=== PATIENT | male | born 1960 | race Caucasian/White ===

== ENCOUNTER 2018-01-09 09:09 | Day surgery (SDC) | payer BC ==
[~2018-01-09 09:09] MED LIST: Lactated Ringers 1,000 ML IV SCH; Sodium Chloride 0.9% 10 ML Syringe FLUSH PRN; Sodium Chloride 0.9% 2.5 ML Syringe FLUSH PRN
--- NOTE | 2018-01-09 09:33 | PCM.PREANE ---
Preanesthetic Assessment - Anesthesia/Transfusion/Family Hx Anesthesia History: Prior Anesthesia Without Reaction Family History of Anesthesia Reaction: No Transfusion History: No Prior Transfusion(s) Intubation History: Unknown - Review of Systems General: No Symptoms Pulmonary: No Symptoms Cardiovascular: No Symptoms Gastrointestinal: No Symptoms, Other (screening colonoscopy) Neurological: No Symptoms Other: Reports: None - Physical Assessment Height: 1.83 m Weight: 101.151 kg ASA Class: 2 Mental Status: Alert & Oriented x3 Airway Class: Mallampati = 2 Dentition: Reports: Normal Dentition Thyro-Mental Finger Breadths: 2 Mouth Opening Finger Breadths: 3 ROM/Head Extension: Full Lungs: Clear to Auscultation, Normal Respiratory Effort Cardiovascular: Regular Rate, Regular Rhythm - Allergies Allergies/Adverse Reactions: Allergies Allergy/AdvReac Type Severity Reaction Status Date / Time No Known Allergies Allergy Verified 01/06/18 11:02 - Blood Blood Available: No - Anesthesia Plan Pre-Op Medication Ordered: None - Acknowledgements Anesthesia Type Planned: MAC Pt an Appropriate Candidate for the Planned Anesthesia: Yes Alternatives and Risks of Anesthesia Discussed w Pt/Guardian: Yes Pt/Guardian Understands and Agrees with Anesthesia Plan: Yes PreAnesthesia Questionnaire HEENT History: Reports: Other (See Below) Other HEENT History: wears glasses Cardiovascular History: Reports: None Respiratory History: Reports: None Gastrointestinal History: Reports: None Genitourinary History: Reports: Renal Calculus Neurological History: Reports: Other (See Below) Other Neuro History: Restless Leg Syndrome Psychiatric History: Reports: None Endocrine/Metabolic History: Reports: None, Obesity/BMI 30+ Dermatologic History: Reports: None - Infectious Disease History Infectious Disease History: Reports: None - Past Surgical History GI Surgical History: Reports: Hernia, Inguinal Male Surgical History: Reports: Lithotripsy (ESWL) (x3), Other (See Below) ( cysto with stent placement) Musculoskeletal Surgical History: Reports: Shoulder Surgery Other Musculoskeletal Surgeries/Procedures:: right RTCR - SUBSTANCE USE Smoking Status *Q: Never Smoker Recreational Drug Use History: No - HOME MEDS Home Medications: Home Meds Aspirin 81 mg PO DAILY 05/04/16 [History] [place]-3 Fatty Acids [Fish Oil] 1,000 mg PO DAILY 05/04/16 [History] Allopurinol [Zyloprim] 100 mg PO DAILY 01/06/18 [History] Cholecalciferol (Vitamin D3) [Vitamin D3] 2,000 unit PO BID 01/06/18 [History] Hydrochlorothiazide 25 mg PO DAILY 01/06/18 [History] Magnesium 250 mg PO DAILY 01/06/18 [History] Multivitamin [Multi-Vitamin Daily] 1 tab PO DAILY 01/06/18 [History] Potassium Citrate/Citric Acid [Cytra-K Crystals] 1 pkt PO DAILY 01/06/18 [ History] Tamsulosin HCl 0.4 mg PO DAILY 01/06/18 [History] rOPINIRole HCl [Requip] 1 mg PO BEDTIME 01/06/18 [History] - CURRENT (IN HOUSE) MEDS Current Meds: Current Medications Lactated Ringer's (Ringers, Lactated) 1,000 mls @ 125 mls/hr IV ASDIRECTED JAKE Sodium Chloride (Saline Flush) 10 ml FLUSH ASDIRECTED PRN PRN Reason: Keep Vein Open Sodium Chloride (Saline Flush) 2.5 ml FLUSH ASDIRECTED PRN PRN Reason: Keep Vein Open Sodium Chloride (Saline Flush) 10 ml FLUSH ASDIRECTED PRN PRN Reason: Keep Vein Open Sodium Chloride (Saline Flush) 2.5 ml FLUSH ASDIRECTED PRN PRN Reason: Keep Vein Open
[2018-01-09] MEDS ORDERED: Lidocaine 2% 5 ML SDV ONE (10:13)
[2018-01-09] MEDS ORDERED: Propofol 200 MG/20 ML SDV ONE (10:13)
[2018-01-09] MEDS ORDERED: fentaNYL 100 MCG/2 ML SDV ONE (10:14)
[2018-01-09] MEDS ORDERED: Midazolam 1 MG/ML 2 ML SDV ONE (10:14)
--- NOTE | 2018-01-09 11:47 | PCM.OPNOTE ---
- General Post-Op/Procedure Note Date of Surgery/Procedure: 01/09/18 Operative Procedure(s): Colonoscopy Findings: Sigmoid colon polyp Pre Op Diagnosis: Screening colonoscopy Post-Op Diagnosis: sigmoid colon polyp Anesthesia Technique: MAC Primary Surgeon: Jessica Collins Condition: Good Free Text/Narrative:: Intake & Output 01/08/18 01/09/18 01/09/18 22:59 06:59 14:59 Intake Total 950 Balance 950
[2018-01-09 12:24] VITALS: BP 119/61
--- NOTE | 2018-01-09 19:41 | OR ---
SURGEON: STEFANI CLAYTON MD DATE OF PROCEDURE: 01/09/2018 PREOPERATIVE DIAGNOSIS: Screening colonoscopy. POSTOPERATIVE DIAGNOSIS: Sigmoid colon polyp. PROCEDURE PERFORMED: Screening colonoscopy. ANESTHESIA: MAC. INSTRUMENT USED: Olympus colonoscope. EXTENT OF EXAM: To the cecum. PREPARATION: Good. LIMITATIONS: None. INDICATION FOR EXAMINATION: The patient is a 57-year-old male, who presents for screening colonoscopy. We discussed the procedure, expected perioperative course, and risks including bleeding, infection, or damage to surrounding structures including perforation. The patient verbalized understanding and wishes to proceed. PROCEDURE IN DETAIL: The patient was brought into the endoscopy suite and placed in the OR cart in the left lateral decubitus position. A time-out was completed verifying the patient's name, age, date of , allergies, and procedure to be performed. Monitored anesthesia care was induced and continuous oxygen was provided via nasal cannula throughout the procedure. After adequate sedation was achieved, a digital rectal exam was performed. This exam was within normal limits. A well lubricated colonoscope was inserted into the rectum and advanced under direct visualization to the level of cecum. The cecum was identified by both visual and anatomic landmarks. A photograph was taken of the cecal cap. I was unable to retroflex the scope within the cecum due to looping of the scope more proximally. The scope was then fully withdrawn while examining the color, texture, anatomy, and integrity of the mucosa from the cecum to the anal canal. The patient was found to have one 2 to 3 mm sessile sigmoid colon polyp. This was removed using a cold biopsy forceps. The scope was then brought into the rectum and retroflexed to allow visualization of the anal canal opening. This appeared normal and a photograph was taken. The scope was then straightened out and removed from the patient. The cecum to anus time was 13 minutes. The patient tolerated the procedure well and was taken to PACU in stable condition. ENDOSCOPIC DIAGNOSIS: Sigmoid colon polyp. RECOMMENDATIONS: Follow up in clinic in 2 weeks. CHRIS RESTREPO /[id number]
== END 2018-01-09 11:40 | disposition home or self-care (01) ==
LOC: MW.SDS 09:09
PROVIDERS: ATTEND Surgery
DX: Z12.11 Encounter for screening for malignant neoplasm of colon (principal); D12.5 Benign neoplasm of sigmoid colon; E66.9 Obesity, unspecified; Z68.30 Body mass index [BMI] 30.0-30.9, adult; Z79.899 Other long term (current) drug therapy
CPT/HCPCS: 45380; J2250; J3010; J7120; 00811; 88305; J2704

== ENCOUNTER 2022-12-20 08:20 | Day surgery (SDC) | payer BC ==
[~2022-12-20 08:20] MED LIST changes: +Sodium Chloride 0.9% 20 ML SDV IV PRN
[2022-12-20] MEDS ORDERED: Propofol 200 MG/20 ML SDV ONE (08:33)
[2022-12-20] MEDS ORDERED: fentaNYL 100 MCG/2 ML SDV ONE (08:33)
[2022-12-20] MEDS ORDERED: Lidocaine 2% 5 ML SDV ONE (08:33)
[2022-12-20 11:07] VITALS: BP 126/77; PULSE 43
== END 2022-12-20 11:15 | disposition home or self-care (01) ==
LOC: MW.SDS 08:20
PROVIDERS: ATTEND Surgery
DX: Z12.11 Encounter for screening for malignant neoplasm of colon (principal); K63.3 Ulcer of intestine; K52.9 Noninfective gastroenteritis and colitis, unspecified; D12.5 Benign neoplasm of sigmoid colon; N40.0 Benign prostatic hyperplasia without lower urinary tract symptoms; G47.19 Other hypersomnia; N52.9 Male erectile dysfunction, unspecified; M17.0 Bilateral primary osteoarthritis of knee; N20.0 Calculus of kidney; E66.9 Obesity, unspecified; G25.81 Restless legs syndrome; Z68.31 Body mass index [BMI] 31.0-31.9, adult; Z79.82 Long term (current) use of aspirin; Z79.899 Other long term (current) drug therapy
CPT/HCPCS: 45380; J2704; J3010; J7120; J3490

== ENCOUNTER 2024-02-25 09:33 | Day surgery (SDC) | payer BC ==
[~2024-02-25 09:33] MED LIST changes: -Lactated Ringers 1,000 ML IV SCH
[2024-02-25] MEDS: Lactated Ringers 1,000 ML IV SCH (10:00)
[2024-02-25] MEDS ORDERED: Propofol 200 MG/20 ML SDV ONE ×2 (10:51→11:46)
[2024-02-25] MEDS ORDERED: Lidocaine 2% 5 ML SDV ONE (10:51)
[2024-02-25 12:26] VITALS: BP 141/84; PULSE 51
== END 2024-02-25 12:35 | disposition home or self-care (01) ==
LOC: MW.SDS 09:33
PROVIDERS: ATTEND Surgery
DX: D12.0 Benign neoplasm of cecum (principal); G47.30 Sleep apnea, unspecified; E66.9 Obesity, unspecified
CPT/HCPCS: 45380; J2704; J7120; 00811; J3490